=== PATIENT | male | born 1945 | race Caucasian/White ===

== ENCOUNTER 2022-05-28 11:55 | Emergency (ER) | payer MEDICARE, OTHER ==
[~2022-05-28] VITALS: Ht 170.2 cm; Wt 90.9 kg
[2022-05-28 13:46] LABS: HEMATOCRIT 50.4 % (42.0-52.0); HEMOGLOBIN 16.4 g/dL (13.5-18.0); MEAN CELL VOLUME 88 fl (78-100); MEAN CORPUSCULAR HEMOGLOBIN 29 pg (27-31); MEAN CORPUSCULAR HGB CONC 33 g/dL (33-37); MEAN PLATELET VOLUME 10.2 fl (7.4-10.4); PLATELET COUNT 147 K/mm3 (130-400); RED BLOOD COUNT 5.71 M/mm3 (4.20-5.60); RED CELL DISTRIBUTION WIDTH 13.9 % (11.5-14.5); WHITE BLOOD COUNT 9.1 K/mm3 (4.8-10.8)
[2022-05-28 14:12] LABS: POTASSIUM 3.8 mmol/L (3.5-5.1)
[2022-05-28 14:13] LABS: CALCIUM 9.5 mg/dL (8.3-10.5)
[2022-05-28 14:14] LABS: TOTAL PROTEIN 7.4 g/dL (6.2-8.1)
[2022-05-28 14:16] LABS: TOTAL BILIRUBIN 5.1 mg/dL (0.2-1.2)
[2022-05-28 14:27] LABS: LYMPHOCYTE 5 % (20-51); MONOCYTE 3 % (3-10); NEUTROPHILS 92 % (42-75)
[2022-05-28 14:41] LABS: LIPASE 11 U/L (8-78)
[2022-05-28 16:08] LABS: PH-URINE 7.5 (5.0 - 8.0); URINE APPEARANCE CLEAR; URINE COLOR DARK YELLOW
[2022-05-28 16:09] LABS: URINE BILIRUBIN 2+ (NEGATIVE); URINE BLOOD 50 ery/uL (NEGATIVE); URINE GLUCOSE NEGATIVE (NEGATIVE); URINE KETONE 2+ (NEGATIVE); URINE LEUKOCYTE ESTERASE NEGATIVE (NEGATIVE); URINE MUCUS PRESENT (NOT PRESENT); URINE NITRATE NEGATIVE (NEGATIVE); URINE PROTEIN(semi-quant) 1+ (NEGATIVE); URINE UROBILINOGEN 1 mg/dL (NORMAL); URINE WBC 0-1 /hpf (0-3)
[2022-05-28] MEDS ORDERED: TYLENOL 8 HOUR650 M1 PO (18:36)
[2022-05-28] MEDS ORDERED: OMEPRAZOLE40 MG PO (18:36)
[2022-05-28] MEDS ORDERED: WELLBUTRIN XL300 M1 PO (18:37)
[2022-05-28] MEDS ORDERED: LEXAPRO 10MG10 MG PO (18:38)
[2022-05-28] MEDS ORDERED: CELEBREX 200MG200 MG PO (18:38)
[2022-05-28] MEDS ORDERED: BENADRYL PO (18:39)
[2022-05-28] MEDS ORDERED: FEXOFENADINE HY60 MG PO (18:40)
[2022-05-28] MEDS ORDERED: KAPSPARGO SPRIN25 MG PO (18:40)
[2022-05-28] MEDS ORDERED: NATURE'S BLEND500 M5 (18:41)
[2022-05-28] MEDS ORDERED: MAGNESIUM200 M1 (18:41)
[2022-05-28] MEDS ORDERED: ANIMAL CHEWS1 EACH (18:41)
[2022-05-28] MEDS ORDERED: CRANBERRY200 MG (18:42)
[2022-05-28] MEDS ORDERED: VITAMIN D310 MC3 (18:42)
[2022-05-28 19:36] LABS: ALBUMIN 3.2 g/dL (3.4-4.8); POTASSIUM 3.2 mmol/L (3.5-5.1)
[2022-05-28 19:37] LABS: CALCIUM 8.3 mg/dL (8.3-10.5)
[2022-05-28 19:38] LABS: TOTAL PROTEIN 5.7 g/dL (6.2-8.1)
[2022-05-28 19:40] LABS: TOTAL BILIRUBIN 2.8 mg/dL (0.2-1.2)
[2022-05-28] MEDS ORDERED: AMOXICILLIN AND1 TA2 PO (20:12)
[2022-05-28 20:26] VITALS: BP 148/94
[2022-05-29 16:16] LABS: HEPATITIS C ANTIBODY Negative (Negative)
== END 2022-05-28 20:28 | disposition home or self-care (01) ==
LOC: ED 11:55
PROVIDERS: Nurse Practitioner
DX: R74.01 Elevation of levels of liver transaminase levels (principal); R50.9 Fever, unspecified; R11.10 Vomiting, unspecified; Z88.1 Allergy status to other antibiotic agents; Z28.310 Unvaccinated for COVID-19
CPT/HCPCS: J1885; J2405; J7030; Q9967